=== PATIENT | female | born 1945 | race Hispanic/Latino ===

== ENCOUNTER 2023-01-18 23:25 | Inpatient (IN) | payer MEDICARE ==
[~2023-01-18 23:25] MED LIST: Iopamidol-370 76% 500 ML 1 ML ONE
[2023-01-18] MEDS ORDERED: Nitroglycerin 2% Ointment 1 INCH/1 GM Packet ONE (23:52)
[2023-01-18] MEDS ORDERED: cefTRIAXone\\ROCEPHIN 1 GM VIAL ONE (23:52)
[2023-01-18] MEDS ORDERED: hydrALAZINE 20 MG/ML VIAL ONE (23:52)
[2023-01-19 00:08] LABS: #Basophils 0.1 thou/uL (0.0-0.2); #Eosinphils 0.2 thou/uL (0.0-0.7); #Lymphocytes 1.1 thou/uL (1.20-3.40); #Monocytes 0.4 thou/uL (0.11-0.59); #Neutrophils 5.2 thou/uL (1.40-6.50); %Basophils 0.7 % (0.0-1.0); %Eosinophils 2.8 % (0.0-10.0); %Lymphocytes 16.2 % (21.0-51.0); %Monocytes 5.3 % (0.0-10.0); %Neutrophils 74.9 % (42.0-75.0); Hemoglobin 11.4 g/dL (12.0-16.0); Mean Corpuscular Volume 88.2 fl (78.0-98.0); Mean Platelet Volume 7.7 fL (7.4-10.4); Platelet Count 158 10x3/uL (130-400); RBC Distribution Width 12.9 % (11.5-14.5)
[2023-01-19] MEDS ORDERED: Ipratropium/Albuterol 3 ML NEB ONE ×2 (00:12→00:32)
[2023-01-19 00:28] LABS: ALT (SGPT) 8 U/L (8-55); AST (SGOT) 15 U/L (5-34); Albumin 4.1 g/dL (3.4-4.8); Alkaline Phosphatase 87 U/L (40-110); Anion Gap 17 mmol/L (10-20); BUN (Urea Nitrogen) 24 mg/dL (9.8-20.1); Bilirubin, Total 0.5 mg/dL (0.2-1.2); Calc. Creatinine Clearance 0 mL/min (70-130); Calcium 9.1 mg/dL (7.8-10.44); Carbon Dioxide 18 mmol/L (23-31); Chloride 111 mmol/L (98-107); Estimated GFR 49; Globulin 3.4 g/dL (2.4-3.5); Glucose 174 mg/dL (83-110); Potassium 4.5 mmol/L (3.5-5.1); Protein, Total 7.5 g/dL (5.8-8.1); Sodium 141 mmol/L (136-145)
[2023-01-19] MEDS ORDERED: Azithromycin 500 MG VIAL ONE (00:48)
[2023-01-19 01:03] LABS: Actual Bicarbonate (HCO3a) 16.3 mEq/L (22-28); Analyzer IN Cardio ER; Base Excess (BEa) -6.8 mEq/L (-2.0 to +3.0); CO2 Tension 25.7 mmHg (35.0-45.0); Calcium, Ionized (arterial) 1.13 mmol/L (1.12-1.30); Carboxyhemoglobin (COHb) 0.2 gm% (0.0-3.0); Hemoglobin (Hb) 11.7 g/dL (12.0-16.0); O2 Tension (PaO2), arterial 87.6 mmHg (> 70.0); Potassium - ABG Lab 3.99 mmol/L (3.70-5.30); pH, Arterial 7.42 (7.35-7.45)
[2023-01-19 01:05] LABS: ALV-art Gradient 165.475 mmHg (0-20); Puncture Site RRA
[2023-01-19] MEDS ORDERED: Ondansetron PF 4 MG/2 ML Vial ONE (01:41)
[2023-01-19] MEDS ORDERED: Furosemide 40 MG/4 ML VIAL ONE (02:18)
[2023-01-19] MEDS ORDERED: Ondansetron PF 4 MG/2 ML Vial IVP PRN (02:47)
[2023-01-19] MEDS ORDERED: Ipratropium/Albuterol 3 ML NEB EZPAP PRN (02:48)
[2023-01-19] MEDS ORDERED: Dextrose 50% Abboject 50 ML SYRINGE SLOW IVP PRN (02:50)
[2023-01-19] MEDS ORDERED: HumaLOG 300 UNITS/3 ML VIAL SC PRN (02:50)
[2023-01-19] MEDS ORDERED: Dextrose 5% in Water 1,000 ML IV PRN (02:50)
[2023-01-19 03:24] VITALS: BMI 27.9
[2023-01-19 04:07] LABS: Hemoglobin A1c 7.5 % (4.0-6.0)
[2023-01-19 04:11] LABS: #Basophils 0.1 thou/uL (0.0-0.2); #Lymphocytes 0.6 thou/uL (1.20-3.40); #Monocytes 0.3 thou/uL (0.11-0.59); #Neutrophils 13.4 thou/uL (1.40-6.50); %Basophils 0.4 % (0.0-1.0); %Eosinophils 0.2 % (0.0-10.0); %Lymphocytes 4.2 % (21.0-51.0); %Monocytes 2.1 % (0.0-10.0); %Neutrophils 93.2 % (42.0-75.0); Hemoglobin 12.3 g/dL (12.0-16.0); Mean Corpuscular HGB CONC 31.9 g/dL (32.0-36.0); Mean Corpuscular Hemoglobin 28.9 pg (27.0-31.0); Mean Corpuscular Volume 90.8 fl (78.0-98.0); Mean Platelet Volume 8.3 fL (7.4-10.4); Platelet Count 155 10x3/uL (130-400); RBC Distribution Width 13.2 % (11.5-14.5); Red Blood Cell (RBC) Count 4.24 mill/uL (4.20-5.40); White Blood Cell (WBC) Count 14.3 10x3/uL (4.8-10.8)
[2023-01-19 04:20] LABS: SARS-CoV-2 NAA Rapid Test Not Detected (NotDetected)
[2023-01-19 04:26] LABS: Anion Gap 19 mmol/L (10-20); BUN (Urea Nitrogen) 23 mg/dL (9.8-20.1); Calc. Creatinine Clearance 47 mL/min (70-130); Calcium 9.2 mg/dL (7.8-10.44); Carbon Dioxide 14 mmol/L (23-31); Cardiac Risk 3.7 (Less than 4.5); Chloride 108 mmol/L (98-107); Cholesterol 158 mg/dl (< 200 Desired); Estimated GFR 51; Glucose 251 mg/dL (83-110); HDL Cholesterol 43 mg/dL (>60 Neg Risk); LDL Cholesterol, Calculated 76 mg/dL; Magnesium 1.5 mg/dL (1.6-2.6); Potassium 4.4 mmol/L (3.5-5.1); Sodium 137 mmol/L (136-145); Triglycerides 194 mg/dL (Less than 150)
[2023-01-19 04:37] LABS: Troponin I 0.032 ng/mL (< 0.028)
[2023-01-19 06:49] LABS: Troponin I 0.041 ng/mL (< 0.028)
[2023-01-19] MEDS: Acetaminophen 325 MG TAB PO PRN ×2 (07:36→18:26)
[2023-01-19] MEDS ORDERED: Alendronate Sodium 70 mg Tablet PO SCH (09:00)
[2023-01-19] MEDS ORDERED: Magnesium 2 GM/50 ML(in water) 2 GM in Premix Bag 1 BAG IVPB SCH (09:00)
[2023-01-19] MEDS: Clopidogrel Bisulfate 75 MG TAB PO SCH (09:17)
[2023-01-19] MEDS: Sertraline 100 MG TAB PO SCH (09:17)
[2023-01-19 09:50] LABS: Lactic Acid 1.8 mmol/L (0.5-2.2)
[2023-01-19] MEDS ORDERED: Labetalol HCl 100 MG/20 ML VIAL SLOW IVP PRN (10:03)
[2023-01-19] MEDS: HumaLOG 300 UNITS/3 ML VIAL SC PRN ×2 (10:11→18:20)
[2023-01-19] MEDS ORDERED: NIFEdipine XL 30 MG TAB PO SCH (10:15)
[2023-01-19] MEDS: Furosemide 40 MG/4 ML VIAL SLOW IVP SCH (14:47)
[2023-01-19] MEDS ORDERED: Atorvastatin Calcium 40 MG TAB PO SCH (21:00)
[2023-01-20 04:12] LABS: #Eosinphils 0.2 thou/uL (0.0-0.7); #Lymphocytes 1.5 thou/uL (1.20-3.40); #Monocytes 0.6 thou/uL (0.11-0.59); #Neutrophils 4.1 thou/uL (1.40-6.50); %Basophils 0.3 % (0.0-1.0); %Lymphocytes 23.3 % (21.0-51.0); %Neutrophils 64.4 % (42.0-75.0); Hemoglobin 11.2 g/dL (12.0-16.0); Mean Corpuscular HGB CONC 34.4 g/dL (32.0-36.0); Mean Corpuscular Hemoglobin 30.1 pg (27.0-31.0); Mean Corpuscular Volume 87.3 fl (78.0-98.0); Mean Platelet Volume 8.1 fL (7.4-10.4); Platelet Count 157 10x3/uL (130-400); RBC Distribution Width 12.9 % (11.5-14.5); Red Blood Cell (RBC) Count 3.74 mill/uL (4.20-5.40); White Blood Cell (WBC) Count 6.4 10x3/uL (4.8-10.8)
[2023-01-20 04:44] LABS: Anion Gap 13 mmol/L (10-20); BUN (Urea Nitrogen) 25 mg/dL (9.8-20.1); Calc. Creatinine Clearance 48 mL/min (70-130); Calcium 9.2 mg/dL (7.8-10.44); Carbon Dioxide 24 mmol/L (23-31); Chloride 105 mmol/L (98-107); Estimated GFR 52; Glucose 143 mg/dL (83-110); Sodium 138 mmol/L (136-145)
[2023-01-20] MEDS: Furosemide 40 MG/4 ML VIAL SLOW IVP SCH (05:38)
[2023-01-20] MEDS ORDERED: Levothyroxine Sodium 100 MCG TAB PO SCH (06:00)
[2023-01-20] MEDS: Clopidogrel Bisulfate 75 MG TAB PO SCH (07:55)
[2023-01-20] MEDS: Sertraline 100 MG TAB PO SCH (07:55)
[2023-01-20] MEDS ORDERED: NIFEdipine XL 30 MG TAB PO SCH (09:00)
[2023-01-20] MEDS: HumaLOG 300 UNITS/3 ML VIAL SC PRN (13:39)
[2023-01-20] MEDS: Acetaminophen 325 MG TAB PO PRN (14:03)
[2023-01-20 14:07] VITALS: BP 118/62
[2023-01-20 16:34] VITALS: TEMP 98.3
[2023-01-21] MEDS ORDERED: Furosemide 40 MG TAB PO SCH (07:30)
== END 2023-01-20 17:25 | disposition home or self-care (01) | DRG 280 ==
LOC: ERS 23:25 → IMCU/EMU 01-19 02:15
PROVIDERS: ADMIT Internal Medicine; ATTEND Internal Medicine
PROC: 5A09357 Assistance with Respiratory Ventilation, Less than 24 Consecutive Hours, Continuous Positive Airway Pressure (ICD-10-PCS; principal; 2023-01-19)
DX: I11.0 Hypertensive heart disease with heart failure (principal); I50.33 Acute on chronic diastolic (congestive) heart failure; I21.A1 Myocardial infarction type 2; J96.01 Acute respiratory failure with hypoxia; E87.20 Acidosis, unspecified; N17.9 Acute kidney failure, unspecified; Z20.822 Contact with and (suspected) exposure to COVID-19; I50.32 Chronic diastolic (congestive) heart failure; E78.5 Hyperlipidemia, unspecified; E03.9 Hypothyroidism, unspecified; I16.0 Hypertensive urgency; E11.65 Type 2 diabetes mellitus with hyperglycemia; Z95.2 Presence of prosthetic heart valve; Z90.710 Acquired absence of both cervix and uterus; Z87.891 Personal history of nicotine dependence; Z79.899 Other long term (current) drug therapy; Z79.84 Long term (current) use of oral hypoglycemic drugs; Z79.890 Hormone replacement therapy; Z79.02 Long term (current) use of antithrombotics/antiplatelets
CPT/HCPCS: 36415; 36416; 36600; 71045; 71275; 80048; 80053; 80061; 82805; 83036; 83605; 83735; 83880; 84484; 85025; 93005; 93306; 94640; 94660; 94760; 96365; 96367; 96375; J0360; J0456; J0696; J1650; J1815; J1940; J2405; J3475; J7620; Q9967